=== PATIENT | male | born 1935 | race Caucasian/White ===

== ENCOUNTER 2017-04-29 00:51 | Inpatient (IN) | payer MEDICARE ==
[~2017-04-29] VITALS: Ht 175.3 cm; Wt 99.2 kg
--- NOTE | ~2017-04-29 | CO ---
Unit #: [id number] #: [id number] Patient: ROMAN CLEANING [id number] [id number] [facility]. [place], [place] [address] [id number] I MR#: [id number] NAME: ROMAN CLEANING. ROOM: 559 Age: 81 Sex: M Admission Date: 04/29/2017 : 1935 Attending Physician: Roberto Art M.D. CONSULTATION REPORT REASON FOR CONSULTATION Elevated creatinine level. HISTORY OF PRESENT ILLNESS The patient is a 81-year-old male with known history of hypertension; coronary artery disease, status post coronary stent placement in the past. The patient was moving furniture at his home when he suddenly had a syncopal episode and was brought into the emergency room. He was intubated en route and was slowly weaned off and extubated in the emergency room. His creatinine level noted to be 1.4. The patient noted to have an elevated creatinine level. Home medications include Zestril and meloxicam. There is no reported vomiting, diarrhea, fevers, chills, hypotension, hematuria, dysuria. PAST MEDICAL HISTORY Significant for atrial fibrillation; peptic ulcer disease; type 2 diabetes; depression; hypertension; COPD; coronary artery disease, status post coronary artery stent placement; cystoscopy; bilateral inguinal hernia repair; wrist surgery. MEDICATIONS At home include hydrochlorothiazide, Klor-Con, sotalol, pravastatin, Lexapro, Coreg, Zyrtec, aspirin, Pradaxa, Desyrel. ALLERGIES IV dye and peanut. SOCIAL HISTORY Does not drink or smoke. FAMILY HISTORY Unremarkable. REVIEW OF SYSTEMS CVS: As above. RESPIRATORY: No cough or expectoration. GI: No diarrhea. No vomiting. : No hematuria. No dysuria. PHYSICAL EXAMINATION GENERAL: The patient is awake, alert, and oriented. VITAL SIGNS: Temperature is 98.6, heart rate is 70 per minute, blood pressure is 126/73. HEENT: Head is atraumatic. Extraocular movements are intact. Sclerae Unit #: [id number] #: [id number] Patient: ROMAN CLEANING are anicteric. Nose, no discharge. Ears, no discharge. NECK: Supple. There is no elevation of JVD. CHEST: Clear. Air entry is equal bilaterally. Breathing is vesicular in nature. HEART: S1, S2 audible. There is no S3, no S4. ABDOMEN: Soft. There is no organomegaly. No guarding. No rigidity. No rebound tenderness. There is no edema. SAUSAGE SMOKER: Motor system is intact. Cerebellar system is intact. DIAGNOSTIC STUDIES LABORATORY RESULTS: ABG on 04/29/2017; pH 7.32, pCO2 50.8, pO2 249, oxygen saturation 99.1. WBC 12, H and H 12.8 and 39.1 with a platelet count of 253. Lactic acid is 2.2. Sodium 140, potassium 4.9, chloride 102, CO2 30, glucose 244, BUN 22, creatinine 1.4, calcium 8.7. IMPRESSION 1. 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 Check proteinuria. Check renal ultrasound. Check urinalysis for urinary sediment and any evidence of acute glomerulonephritis. We will consider workup for paraproteinemia. We will request to refrain from NSAIDs. It could be tried on LOUIE inhibitors/ARB as outpatient. Expect renal function to stabilize. 2. Coronary artery disease. 3. Hypertension. 4. Chronic obstructive pulmonary disease. 5. Syncopal episode, etiology unclear. Dictated by... Duke Garcia M.D. RA/tamiko TD: 05/04/2017 19:42 JOB #: [id number] CONSULTATION REPORT Page 1 of 1 X Duke Garcia MD X CONSULTATION REPORT
--- NOTE | ~2017-04-29 | DS ---
Unit #: [id number] #: [id number] Patient: ROMAN CLEANING [id number] [address] [address] [id number] I MR#: [id number] NAME: ROMAN CLEANING. ROOM: 55 Age: 81 Sex: M Admission Date: 04/29/2017 : 1935 Discharge Date: 05/03/2017 Attending Physician: Roberto Art M.D. DISCHARGE SUMMARY DISCHARGE DIAGNOSES 1. Status post acute respiratory failure. 2. Status post acute exacerbation of COPD. 3. History of coronary artery disease. 4. Paroxysmal atrial fibrillation. 5. Questionable syncope, status post Cardiology evaluation. 6. Diabetes. 7. Depression. 8. Restless leg syndrome. DISCHARGE MEDICATIONS 1. Requip 2 mg p.o. at bedtime. 2. Vitamin B12 at 500 mcg daily. 3. Klor-Con 20 mEq daily. 4. Nexium 40 mg daily. 5. Aspirin 81 mg daily. 6. Pravastatin 80 mg daily. 7. Hydrochlorothiazide 25 mg daily. 8. Betapace 80 mg daily. 9. Colace 100 mg p.o. b.i.d. 10. Coreg 25 mg at bedtime and 12.5 mg in the morning. 11. Zyrtec 10 mg daily. 12. Desyrel 50 mg at bedtime. 13. Lexapro 20 mg daily. 14. Pradaxa 150 mg daily. 15. Flovent Diskus daily. 16. Tylenol p.r.n. 17. Prednisone tapering dose for 3 days. 18. Symbicort 2 puffs inhaler b.i.d. 19. Albuterol inhaler b.i.d. CONSULTS DURING THIS HOSPITAL STAY 1. Dr. Boy Sin, Pulmonary. 2. Dr. Church, Cardiology. 3. Dr. Dias, Nephrology. LABS, DIAGNOSTICS, AND PROCEDURES DURING THIS HOSPITAL STAY 1. Chest x-ray unremarkable. Bilateral emphysema. 2. Renal ultrasound normal bilateral renal sonograms. HISTORY OF PRESENT ILLNESS Please refer to H and P done by me for initial presentation on this gentleman. Unit #: [id number] #: [id number] Patient: ROMAN CLEANING ACTIVE PROBLEMS DIAGNOSED Acute respiratory failure. Initially he was intubated and extubated in the ER. Was kept on BiPAP briefly, but he was weaned off. He was seen in consultation by Pulmonary who treated with bronchodilators and IV steroids and is currently on p.o. steroids. Stable from Pulmonary standpoint to be discharged. Questionable syncope, most likely was presyncope most likely attributed to some type of chemical inhalation while cleaning the basement. Status post Cardiology evaluation and unremarkable workup. Stable from cardiac standpoint to be discharged. History of coronary artery disease with paroxysmal atrial fibrillation. Continue sotalol, beta dain, and Pradaxa. Diabetes. Continue home meds. Depression. Continue home medications. Restless leg syndrome. Started on Requip. CKD, status post evaluation per Renal. Outpatient followup with Nephrology. DISPOSITION Status post evaluation per PT/OT, stable to be discharged home. FOLLOWUP 1. With primary care physician in two to three days. 2. Outpatient followup with Cardiology and Nephrology. 1. Dictated by... Leyda Samayoa/salena TD: 05/03/2017 18:41 JOB #: [id number] DISCHARGE SUMMARY Page 1 of 1 X Roberto Art MD DISCHARGE SUMMARY
--- NOTE | ~2017-04-29 | HP ---
Unit #: [id number] #: [id number] Patient: ROMAN BAXTER [id number] [address] [address] [id number] I MR#: [id number] NAME: ROMAN BAXTER ROOM: 559 Age: 81 Sex: M Admission Date: 04/29/2017 : 1935 Attending Physician: Roberto Art M.D. Primary Care Physician: No Primary Care Physician HISTORY AND PHYSICAL ADMISSION DIAGNOSES 1. Acute hypoxemic respiratory failure. 2. Acute exacerbation of COPD. 3. History of paroxysmal A-fib. 4. History of mild valvular heart disease. 5. History of coronary disease. 6. History of depression. 7. Diabetes. 8. Peptic ulcer disease. HISTORY OF PRESENT ILLNESS Mr. Baxter is a 81-year-old gentleman well known to me secondary to previous similar admission. Apparently, he started having shortness of air and dyspnea after cleaning out the basement with his sons last night. Shortly after, EMS was called and he was found in acute hypoxemic respiratory failure, was intubated, taken to the [facility] ER. From there, patient was transferred to [place]. At [place], patient was treated with bronchodilators and was able to extubate. Briefly was put on BiPAP. Since then, he made further progress and had weaned off of the BiPAP as well. Currently, he appears pretty comfortable, status post evaluation per pulmonary and stable for transfer to telemetry. He denies any chest pain, denies any headache, dizziness, fever, chills, nausea, vomiting, diarrhea or abdominal pain. REVIEW OF SYSTEMS Twelve point review of systems on this patient was basically negative except as above. PAST MEDICAL HISTORY Significant for: 1. History of coronary artery disease. 2. A-fib. 3. Peptic ulcer disease. 4. Diabetes. 5. Depression. 6. Hypertension. 7. COPD. PAST SURGICAL HISTORY Significant for: 1. Cardiac cath with PCI with stents. 2. Cystoscopy. 3. Bilateral inguinal hernia repair. 4. Wrist surgery. Unit #: [id number] #: [id number] Patient: ROMAN BAXTER MEDICATIONS Home medications on this gentleman include: 1. HCTZ. 2. Klor-Con. 3. Sotalol. 4. Pravastatin. 5. Lexapro. 6. Nexium. 7. Coreg. 8. Zyrtec. 9. Aspirin. 10. B12. 11. Pradaxa. 12. Symbicort. 13. Fluticasone. 14. Albuterol. 15. Desyrel. ALLERGIES He is allergic to IV dye and peanuts. SOCIAL HISTORY No current history of tobacco, alcohol or illicit drugs. FAMILY HISTORY Unremarkable. PHYSICAL EXAMINATION The patient is a 80-year-old gentleman in no acute distress. VITAL SIGNS: Currently, BP 126/73, heart rate 70, respirations 23, temperature 98.6. HEENT: Head is atraumatic. Pupils equal, round, reactive to light and accommodation. Extraocular muscles intact. Oropharynx clear. NECK: Supple. No masses, no JVD, no bruits. CHEST: Diminished bilaterally. CARDIOVASCULAR: S1, S2. No murmurs. ABDOMEN: Soft, nontender, nondistended. EXTREMITIES: Lower extremities without any cyanosis, clubbing or edema. NEUROLOGIC: Patient is grossly intact. No focal deficits. LABS AND DIAGNOSTICS ABG early this morning show pH of 7.28, pCO2 65, pO2 311. Chemistry still pending. Hematology still pending. ASSESSMENT AND PLAN 1. Acute hypoxemic respiratory failure. 2. Acute exacerbation of COPD. 3. History of A-fib with coronary artery disease. 4. History of depression. 5. Diabetes. Plan - empiric Levaquin, Duo-Nebs, IV steroids and Pulmicort. Pulmonary eval. GI and DVT prophylaxis with some PPI and continue Pradaxa. Monitor closely on a telemetry bed. Healthy heart diabetic diet. Unit #: [id number] #: [id number] Patient: ROMAN BAXTER Dictated by Roberto Art M.D. OC/df TD: 04/30/2017 06:08 JOB #: [id number] HISTORY AND PHYSICAL Page 1 of 1 X Roberto Art MD HISTORY AND PHYSICAL
--- NOTE | ~2017-04-29 | CO ---
Unit #: [id number] #: [id number] Patient: ROMAN CLEANING [id number] [facility]. [place], [place] [address] [id number] I MR#: [id number] NAME: ROMAN CLEANING. ROOM: 559 Age: 81 Sex: M Admission Date: 04/29/2017 : 1935 Attending Physician: Roberto Art M.D. Primary Care Physician: Primary Care Physician No Consultation Date: 04/30/2017 CONSULTATION REPORT REASON FOR CONSULTATION Syncope. HISTORY OF PRESENT ILLNESS This is a 81-year-old white male, who was admitted with shortness of breath. The patient was cleaning his basement that contain dust and mold in preparation to move. He got very short of breath and his son assisted him upstairs. He took a breathing treatment and his dyspnea improved. 2 hours later, his dyspnea worsened. EMS was dispatched by the patient. When the patient saw EMS arrived, he opened the door, and then passed out. He was subsequently intubated. He was brought to the Emergency Room at [facility] and was transferred to this facility. He was extubated. Prior to his syncopal episode, he denied any symptoms of angina. He had report of palpitations, but no dizziness. He states his breathing has gradually worsened over the past 2 weeks prior to his admission. He had no paroxysmal nocturnal dyspnea, orthopnea, or leg edema. The patient has a longstanding history of coronary artery disease, where he underwent multiple PCI and stents in the past. His cardiac catheterization in 2012, showed chronically occluded right coronary artery. He was admitted at [facility] in 01/2017 for chest pain. He underwent cardiac catheterization and was found to have nonobstructive disease except for the right coronary artery which was chronic occluded. It was successful stent placement of the proximal right coronary artery chronic total occlusion. He is known to have paroxysmal atrial fibrillation and has been on triple therapy with aspirin, Plavix, and Pradaxa. He has since failed to follow with Cardiology. His troponin has been negative. EKG shows no acute ischemic changes. PAST MEDICAL HISTORY 1. PCI with drug-eluting stents x2 to the mid and proximal LAD in 04/2012. 2. Cardiac catheterization on 01/02/[address] Alejandre at [facility] that reveals the following results. a. Left main with 30% distal stenosis. Proximal LAD stent is widely patent. The mid to distal LAD has 20% diffuse stenosis. There was a large apical collateral to the right coronary artery. Ramus intermedius branch with 30% stenosis. Circumflex artery had 20% stenosis. Right coronary artery is totally occluded proximally. b. Status post successful drug-eluting stent of the proximal right coronary artery chronic total occlusion on 01/02/2017. 3. Paroxysmal atrial fibrillation with history of direct current cardioversion, on Pradaxa. 4. Hypertension. Unit #: [id number] #: [id number] Patient: ROMAN CLEANING 5. Hyperlipidemia. 6. Diabetes mellitus, type 2. 7. COPD. 8. Peptic ulcer disease. 9. Former smoker. PAST SURGICAL HISTORY 1. Cholecystectomy. 2. Cystoscopy. 3. Bilateral hernia repair. 4. Wrist surgery. SOCIAL HISTORY The patient is single and lives at home alone. He quit smoking more than 40 years ago. He denies illicit drug or alcohol use. FAMILY HISTORY Has a sister, who from myocardial infarction. ALLERGIES IV contrast. HOME MEDICATIONS Hydrochlorothiazide 25 mg daily, potassium chloride 20 mEq daily, sotalol 80 mg daily, pravastatin 80 mg daily, Lexapro 20 mg daily, carvedilol 12.5 mg q.a.m. and 25 mg q.p.m., Nexium 40 mg daily, Zyrtec 10 mg daily, aspirin 81 mg daily, vitamin B12 500 mcg daily, Pradaxa 150 mg daily, Symbicort 160/4.5 mcg 2 puffs b.i.d., Flovent 2 puffs b.i.d., albuterol sulfate per mini nebs b.i.d., trazodone 50 mg q.h.s. REVIEW OF SYSTEMS CONSTITUTIONAL: Negative for fever or chills. Has no weight gain or weight loss. HEENT: No headache, hearing or vision change, or difficulty with swallowing. Negative for dizziness. CARDIOVASCULAR: Has no symptoms of angina. Reports palpitations. No paroxysmal nocturnal dyspnea or orthopnea. No syncope or near syncope. RESPIRATORY: Positive for dyspnea at rest, worse on exertion. Has occasional nonproductive cough. No hemoptysis. GASTROINTESTINAL: No abdominal pain, nausea, or vomiting. No constipation or melena. EXTREMITIES: Negative for lower extremity edema. PHYSICAL EXAMINATION VITAL SIGNS: Blood pressure 139/67, heart rate 59, temperature 97.9. GENERAL: This is a very pleasant 81-year-old well-developed white male, who is in no acute distress. NEUROLOGIC: He is awake, alert, and oriented. There are no focal weaknesses. NECK: Trachea is midline. No thyromegaly. No lymphadenopathy. No jugular venous distention. HEART: S1, S2. Heart sounds are normal. No murmurs. No rubs or clicks. Regular rate and rhythm. LUNGS: The patient has a few rales and rhonchi in both lungs. ABDOMEN: Soft and nontender with bowel sounds are present. EXTREMITIES: Without leg edema. SKIN: Warm and dry. Unit #: [id number] #: [id number] Patient: ROMAN CLEANING DIAGNOSTIC STUDIES LABORATORY RESULTS: Hemoglobin 12.5, hematocrit 37.8, platelet count 201, white count 11.3. Sodium 143, potassium 3.7, BUN 26, creatinine 1.3, glucose 163. BNP 346. Troponin less than 0.05. IMAGING STUDIES: Chest x-ray shows no active disease. CARDIOVASCULAR STUDIES: EKG shows normal sinus rhythm, rate of 86 beats per minute. There were no acute ischemic changes. IMPRESSION 1. Chronic obstructive pulmonary disease exacerbation. 2. Syncope with loss of consciousness, questionable etiology. 3. Compensated chronic diastolic heart failure. 4. History of paroxysmal atrial fibrillation in normal sinus rhythm, on Pradaxa. 5. Coronary artery disease with history of percutaneous coronary intervention and stent to the left anterior descending in 2011 and percutaneous coronary intervention and stent x2 to right coronary artery chronic total occlusion in 01/2017. 6. Preserved left ventricular systolic function with an ejection fraction of greater than 55%. 7. Stable angina. PLAN 1. Cardiology was consulted for syncope. It is questionable if the patient truly had a syncopal episode. There was no mention of [facility] exam at [facility] Emergency Room. We will try to obtain records from [facility]. 2. The patient has compensated chronic diastolic heart failure. We will start the patient on daily Lasix orally. 3. The patient took Plavix for 3 months and is on triple therapy. We will discontinue Plavix and continue aspirin and Pradaxa. 4. Recent cardiac catheterization showed chronic total occlusion to the right coronary artery that was stented using 3.5 x 38 and 3.0 x 18 mm Xience Alpine stent in 01/2017. The old LAD stent was widely patent. We will continue the same cardiac management with no workup planned at this time. 5. We will follow the patient with you. Thank you for allowing us to assist with this patient's care. Dictated by... Ricardo Stearns A.P.R.N. for Leyda Iniguez/tamiko TD: 05/01/2017 15:58 JOB #: [id number] Sovera/invision Please Delete Unit #: [id number] #: [id number] Patient: ROMAN CLEANING CONSULTATION REPORT Page 1 of 1 X Ricardo Stearns APRN X CONSULTATION REPORT
--- NOTE | ~2017-04-29 | CR72 ---
[facility] A Service of [facility] & [facility] RADIOLOGY TEXT RESULTS PATIENT: OSWALD CLEANING LOCATION: [place] [address] : 37 UNIT #: [id number] AGE: [address]: Roberto Art MD SEX: M ORDER DR: [id number] [facility] [address] [place], [place] [address] [id number] I MR#: [id number] Acc #: [id number] NAME: OSWALD CLEANING. : 1935 SEX: M STUDY DATE/TIME: 04/30/2017 5:27 UNIT: [facility] ROOM: [facility] STUDY DESCRIPTION: CR Chest Single View Portable Attending Physician: Roberto Art M.D. Ordering Physician: Oswald Drake M.D. Primary Care Physician: No Primary Care Physician MEDICAL IMAGING REPORT This report is preliminary unless electronic signature is present EXAM Single view chest HISTORY Respiratory failure for 2 days. FINDINGS The cardiac and mediastinal contours are normal. Calcified mediastinal and right hilar nodes. No focal infiltrates or effusions. Small calcified granuloma lateral right base. ETT is been removed since yesterday. IMPRESSION No evidence of active disease in the lungs. ETT is been removed since yesterday. Dictated by... Pradip Morales M.D. THIS IS AN ELECTRONICALLY VERIFIED REPORT Pradip Morales M.D. at 04/30/2017 10:31 PM BARBARA/parminder TD: 04/30/2017 12:46 JOB #: [id number] MEDICAL IMAGING REPORT Page 1 of 1 COPY
--- NOTE | ~2017-04-29 | CR72 ---
[facility]. [facility] A Service of [facility] & [facility] RADIOLOGY TEXT RESULTS PATIENT: ROMAN CLEANING LOCATION: [facility] 559- : 37 UNIT #: [id number] AGE: [address]: Roberto Art MD SEX: M ORDER DR: [id number] [address] [address] [id number] MR#: [id number] Acc #: [id number] NAME: ROMAN CLEANING : 1935 SEX: M STUDY DATE/TIME: 04/29/2017 0:57 UNIT: SED ROOM: STUDY DESCRIPTION: CR Chest Single View Portable Attending Physician: Lee Antunez M.D. Ordering Physician: Dillan Crawford M.D. Primary Care Physician: Primary Care Physician No MEDICAL IMAGING REPORT This report is preliminary unless electronic signature is present. EXAM Portable chest HISTORY Shortness of air today. Intubation. FINDINGS ETT tip is 8 cm above the eddie. Bilateral emphysema and mild scattered linear fibrotic scarring in both lungs. Tiny calcified granuloma lateral right lung base. No airspace infiltrates or effusions. IMPRESSION 1. ETT tip is 8 cm above the eddie. 2. Bilateral emphysema and scattered fibrotic scarring in both lungs. Dictated by... Pradip Morales M.D. THIS IS AN ELECTRONICALLY VERIFIED REPORT Pradip Morales M.D. at 04/30/2017 4:46 AM BARBARA/jd TD: 04/29/2017 23:22 JOB #: [id number] MEDICAL IMAGING REPORT Page 1 of 1
--- NOTE | ~2017-04-29 | US77 ---
[facility] A Service of [facility] & [facility] RADIOLOGY TEXT RESULTS PATIENT: ROMAN CLEANING LOCATION: [facility] 559- : 37 UNIT #: [id number] AGE: [address]: Roberto Art MD SEX: M ORDER DR: [id number] [facility] [address] [place], [place] [address] [id number] I MR#: [id number] Acc #: [id number] NAME: ROMAN CLEANING. : 1935 SEX: M STUDY DATE/TIME: 05/02/2017 18:37 UNIT: [facility] ROOM: [facility] STUDY DESCRIPTION: US Kidney Bilateral Complete Attending Physician: Roberto Art M.D. Ordering Physician: Aureliano Anaya M.D. Primary Care Physician: No Primary Care Physician MEDICAL IMAGING REPORT This report is preliminary unless electronic signature is present EXAM Renal sonogram. CLINICAL HISTORY Chronic kidney disease, creatinine 1.1. FINDINGS Real-time examination demonstrates the kidneys to be of normal size, shape, and echogenicity. Right kidney measures 11.2 and the left kidney measures 11.3 cm in length. No hydronephrosis. A septated cystic lesion seen lower pole right kidney measuring 2.7 cm compatible with a mildly complicated cyst. Bladder unremarkable. Color Doppler confirms the presence of flow bilaterally. Probable small cyst lower pole left kidney. IMPRESSION Several small bilateral renal cortical cysts, otherwise normal bilateral renal sonogram. Dictated by... Jhonatan Newman M.D. THIS IS AN ELECTRONICALLY VERIFIED REPORT Jhonatan Newman M.D. at 05/03/2017 2:05 PM BRENDEN/farooq TD: 05/02/2017 21:52 JOB #: [id number] MEDICAL IMAGING REPORT Page 1 of 1 COPY
--- NOTE | ~2017-04-29 | CO ---
Unit #: [id number] #: [id number] Patient: OSWALD BAXTER [id number] [facility] [address] [place], [place] [address] [id number] MR#: [id number] NAME: OSWALD BAXTER. ROOM: 559 Age: 81 Sex: M Admission Date: 04/29/2017 : 1935 Attending Physician: Roberto Art M.D. Consultation Date: 04/29/2017 CONSULTATION REPORT HISTORY OF PRESENT ILLNESS Oswald Baxter is a 81-year-old male, whom I have been asked to see regarding respiratory failure and decompensated COPD. Mr. Baxter is followed in our office for severe COPD. He was in his usual health until the evening prior to admission. He is in the process of cleaning in his basement in preparation of moving to a new residence. Around 6 to 7 p.m., he was noted to have increased dyspnea, complaint of shortness of breath and was given a home nebulizer treatment with albuterol. His wheezing and chest congestion improved, but around midnight his bronchospastic symptoms returned and EMS was summoned. He was intubated in the field. He has no recall or memory of the event. He was taken to the emergency department at [facility] and then transferred to [facility] for inpatient care and management. Once at [facility], he was extubated as his respiratory status became better with treatment. He was first placed on BiPAP, but complained of nausea and vomiting and is now resting comfortably off BiPAP with relatively normal blood gases. On nasal oxygen off BiPAP, pO2 is 108, pCO2 of 45.7, 7.43. His chest x-ray showed no pneumonic infiltrates or masses. The patient is a reformed smoker. At home, he uses Symbicort and albuterol per metered dose inhaler and nebulizer. PAST MEDICAL HISTORY Remarkable for hypertension, obesity, depression, gastroesophageal reflux, COPD, and atrial fib. MEDICATIONS Outpatient medications include hydrochlorothiazide, potassium, sotalol, pravastatin, Lexapro, Coreg, Nexium, Zyrtec, aspirin, B12, Pradaxa, Symbicort, Flonase, albuterol, trazodone. ALLERGIES No listed allergies. FAMILY HISTORY Reviewed and noncontributory. SOCIAL HISTORY No history of alcohol or drug abuse. REVIEW OF SYSTEMS CONSTITUTIONAL: He denied fever, chills, or recent change in weight. Unit #: [id number] #: [id number] Patient: OSWALD BAXTER ENT: Complained of increased nasal and sinus congestion. No epistaxis. NECK: No pain in cervical spine. No thyroid enlargement. PULMONARY: As above. Currently, he is resting comfortably and in no distress. CARDIAC: Denied chest pain, ankle edema, or orthopnea. GI: Denied nausea, vomiting, or diarrhea. In the last several hours while on BiPAP, he was nauseated and had one episode of vomiting. : Denied dysuria or hematuria. SKIN: No rash or nodules. LYMPH: No adenopathy in neck, cervical, or axillary areas. NEUROLOGIC: No loss of consciousness, seizures, or syncope. He was unresponsive when internally was intubated. He is now awake and alert. MUSCULOSKELETAL: Arthritic pain and stiffness in his lower back, hips, and knees. All made worse by standing for long periods. PHYSICAL EXAMINATION GENERAL: He appeared obese, elderly male. VITAL SIGNS: Over the last several hours, his temp has remained normal at 97 to 98, pulse ranging from 80 to 90, respirations ranging from 16 to 20, and his blood pressure has been 100 to 110 over 60 to 70. HEENT: Head is normocephalic without evidence of trauma. Eyes; pupils equal, round, reactive to light and accommodation, not tested sclerae anicteric. Conjunctivae normal. Ears, nose, throat, nostrils; open and patent. Tympanic membranes appeared normal. Oral cavity unremarkable. Mallampati class II to III. No thrush. NECK: Supple without adenopathy or jugular venous distention. LUNGS: With diminished breath sounds, but clear. No rales, rhonchi, nor wheezes. CARDIAC: PMI poorly localized. HEART: Sounds distant. No murmurs or gallops. ABDOMEN: Obese, soft, nontender. No hepatosplenomegaly or masses. Bowel sounds were diminished and present. GENITALIA: Normal male. RECTAL: Deferred. EXTREMITIES: Without clubbing, cyanosis, or edema. SKIN: Warm and dry with normal capillary refill. LYMPHS: No adenopathy in neck, cervical, or axillary areas. MUSCULOSKELETAL: Equal muscular development bilaterally. No joint swelling or erythema. Strength not tested. NEUROLOGIC: Cranial nerves II through XII intact. Sensory normal to pinprick and touch. Deep tendon reflexes are 1+ in both upper and lower extremities. No Babinski negative. DIAGNOSTIC STUDIES LABORATORY RESULTS: Last blood gases are as mentioned above. IMAGING STUDIES: His chest x-ray as above. Changes of COPD. No pneumonic infiltrates or masses. IMPRESSION 1. Chronic obstructive pulmonary disease with bronchospastic exacerbation which is cleared relatively quickly. It was probably precipitated by household dust and dirt involved in cleaning his basement. 2. Respiratory failure which seems to be resolving. 3. Hypertension. 4. History of atrial fibrillation. 5. Depression. Unit #: [id number] #: [id number] Patient: OSWALD BAXTER RECOMMENDATIONS Suggest IV corticosteroids, nebulized bronchodilators, supplemental oxygen to keep his saturations between 90% and 94%. Antibiotics. He appears stable enough to go to a transitional care bed and not ICU. We will follow him with you. Dictated by... Boy Sin M.D. BRAN/tamiko TD: 05/01/2017 03:39 JOB #: [id number] CONSULTATION REPORT Page 1 of 1 X Boy Sin MD X CONSULTATION REPORT
[2017-04-29 01:06] LABS: ARTERIAL BLOOD GAS PCO2 50.8 mmHg (35.0-45.0)
[2017-04-29 01:07] LABS: ARTERIAL BLD GAS O2 SATURATION 99.1 % (90.0-100.0); ARTERIAL BLOOD GAS HCO3 25.3 mmol/L; ARTERIAL BLOOD GAS MET HB <0.0 %sat (0.0-2.0)
[2017-04-29 01:08] LABS: ARTERIAL BLOOD GAS ART SITE LEFT RADIAL; ARTERIAL DRAW? YES
[2017-04-29 01:20] LABS: BASOPHIL# 0.1 X10e3 (0-0.3); BASOPHIL% 0.5 % (0-2.5); EOSINOPHIL# 0.3 X10e3 (0-0.7); EOSINOPHIL% 2.6 % (0.0-7.0); HEMATOCRIT 39.1 % (38.0-50.0); HEMOGLOBIN 12.8 gm/dL (13.0-16.0); LYMPHOCYTE# 5.3 X10e3 (1.0-3.5); LYMPHOCYTE% 44.4 % (17.0-45.0); MEAN CELL VOLUME 92.1 FL (83-96); MEAN CORPUSCULAR HEMOGLOBIN 30.2 PG (28-34); MEAN CORPUSCULAR HGB CONC 32.8 g/dL (30-36); MEAN PLATELET VOLUME 9.8 FL (6.5-11.5); MONOCYTE# 0.9 X10e3 (0-1.0); MONOCYTE% 7.3 % (3.0-12.0); NEUTROPHIL# 5.4 X10e3 (1.5-7.1); NEUTROPHIL% 45.2 % (40-75); PLATELET COUNT 253 X10e3 (140-420); RED BLOOD COUNT 4.24 X10e (3.90-5.60); RED CELL DISTRIBUTION WIDTH 13.8 % (11.0-15.5)
[2017-04-29] MEDS ORDERED: SOTALOL AF80 M1 PO (01:22)
[2017-04-29] MEDS ORDERED: KCL PO ×2 (01:22→12:58)
[2017-04-29] MEDS ORDERED: HYDROCHLOROTHIA25 MG PO ×2 (01:22→12:57)
[2017-04-29] MEDS ORDERED: PRAVASTATIN SOD80 MG (01:23)
[2017-04-29] MEDS ORDERED: ESCITALOPRAM OX20 MG (01:23)
[2017-04-29] MEDS ORDERED: CARVEDILOL25 MG (01:24)
[2017-04-29] MEDS ORDERED: NEXIUM PO (01:24)
[2017-04-29 01:25] LABS: POC - CKMB 1.1 ng/mL (0.0-7.9); POC - TROPONIN <0.05 ng/mL (<=0.05)
[2017-04-29 01:25] LABS: DIFF IND NO
[2017-04-29] MEDS ORDERED: ASPIRIN81 M2 (01:25)
[2017-04-29] MEDS ORDERED: SYMBICORT (01:25)
[2017-04-29] MEDS ORDERED: ALBUTEROL2.5 MG/3 M (01:25)
[2017-04-29] MEDS ORDERED: PRADAXA150 MG (01:25)
[2017-04-29] MEDS ORDERED: ZYRTEC10 M1 (01:25)
[2017-04-29] MEDS ORDERED: FLOVENT DISKUS50 MCG INH (01:26)
[2017-04-29] MEDS ORDERED: DESYREL50 MG PO ×2 (01:27→13:12)
[2017-04-29 01:28] LABS: INR 1.3; PROTHROMBIN TIME (PATIENT) 14.8 SECONDS (9.5-12.4)
[2017-04-29 01:35] LABS: PARTIAL THROMBOPLASTIN TIME 34.7 SECONDS (25.6-38.1)
[2017-04-29 01:38] LABS: BILIRUBIN, DIRECT 0.1 mg/dL (0.0-0.2); BILIRUBIN,INDIRECT 0.3 mg/dL (0.0-0.9); BILIRUBIN,TOTAL 0.4 mg/dL (0.2-2.0); BUN/CREATININE RATIO 15.71; CALCIUM SERUM 8.7 mg/dL (8.4-10.2); CREATININE SERUM 1.4 mg/dL (0.6-1.4); GLOM FILT RATE Estimated 47.5 mL/min (>60); POTASSIUM 4.9 mmol/L (3.5-5.1); PROTEIN TOTAL SERUM 7.8 g/dL (6.0-8.3)
[2017-04-29 10:42] LABS: BASOPHIL% 0.2 % (0-2.5); HEMATOCRIT 37.8 % (38.0-50.0); HEMOGLOBIN 12.5 gm/dL (13.0-16.0); LYMPHOCYTE# 1.1 X10e3 (1.0-3.5); LYMPHOCYTE% 9.4 % (17.0-45.0); MEAN CELL VOLUME 90.7 FL (83-96); MEAN PLATELET VOLUME 9.9 FL (6.5-11.5); MONOCYTE# 0.2 X10e3 (0-1.0); MONOCYTE% 1.4 % (3.0-12.0); PLATELET COUNT 201 X10e3 (140-420); RED BLOOD COUNT 4.17 X10e (3.90-5.60); WHITE BLOOD COUNT 11.3 X10e3 (4.0-10.5)
[2017-04-29 10:43] LABS: DIFF IND NO
[2017-04-29 11:12] LABS: CALCIUM SERUM 9.3 mg/dL (8.4-10.2); CREATININE SERUM 1.3 mg/dL (0.6-1.4); GLOM FILT RATE Estimated 51.9 mL/min (>60); POTASSIUM 3.7 mmol/L (3.5-5.1)
[2017-04-29 12:09] LABS: ARTERIAL BLD GAS O2 SATURATION 96.8 % (90.0-100.0); ARTERIAL BLOOD GAS CARBOXY HB 0.6 %sat (0.0-9.0); ARTERIAL BLOOD GAS HCO3 30.7 mmol/L; ARTERIAL BLOOD GAS MET HB 1.4 %sat (0.0-2.0); ARTERIAL BLOOD GAS PCO2 45.7 mmHg (35.0-45.0); ARTERIAL BLOOD GAS pH 7.435 (7.350-7.450)
[2017-04-29 12:10] LABS: ARTERIAL BLOOD GAS ALLEN TEST NORMAL; ARTERIAL BLOOD GAS ART SITE RIGHT RADIAL; ARTERIAL BLOOD GAS DELIVERY NASAL CANNULA; ARTERIAL DRAW? YES
[2017-04-29] MEDS ORDERED: SOTALOL AF80 MG PO (12:58)
[2017-04-29] MEDS ORDERED: LEXAPRO20 MG PO (12:59)
[2017-04-29] MEDS ORDERED: PRAVASTATIN SOD80 MG PO (12:59)
[2017-04-29] MEDS ORDERED: CARVEDILOL25 MG PO (13:00)
[2017-04-29] MEDS ORDERED: ZYRTEC10 M2 PO (13:01)
[2017-04-29] MEDS ORDERED: ASPIRIN81 MG PO (13:01)
[2017-04-29] MEDS ORDERED: NEXIUM40 M1 PO (13:01)
[2017-04-29] MEDS ORDERED: B-12500 MC1 PO (13:02)
[2017-04-29] MEDS ORDERED: SYMBICORT INH (13:02)
[2017-04-29] MEDS ORDERED: PRADAXA150 MG PO (13:02)
[2017-04-29] MEDS ORDERED: FLOVENT DISKUS50 MCG PO (13:03)
[2017-04-29] MEDS ORDERED: ALBUTEROL2.5 MG/3 M INH (13:12)
[2017-05-01 06:54] LABS: HEMATOCRIT 35.4 % (38.0-50.0); HEMOGLOBIN 11.7 gm/dL (13.0-16.0); MEAN CELL VOLUME 90.6 FL (83-96); MEAN CORPUSCULAR HEMOGLOBIN 29.9 PG (28-34); MEAN CORPUSCULAR HGB CONC 33.1 g/dL (30-36); MEAN PLATELET VOLUME 10.3 FL (6.5-11.5); RED BLOOD COUNT 3.91 X10e (3.90-5.60); RED CELL DISTRIBUTION WIDTH 14.1 % (11.0-15.5); WHITE BLOOD COUNT 16.3 X10e3 (4.0-10.5)
[2017-05-01 07:22] LABS: BUN/CREATININE RATIO 28.46; CALCIUM SERUM 9.2 mg/dL (8.4-10.2); CREATININE SERUM 1.3 mg/dL (0.6-1.4); GLOM FILT RATE Estimated 51.9 mL/min (>60); POTASSIUM 4.3 mmol/L (3.5-5.1)
[2017-05-02 07:13] LABS: MEAN CORPUSCULAR HEMOGLOBIN 29.2 PG (28-34); MEAN CORPUSCULAR HGB CONC 32.5 g/dL (30-36); MEAN PLATELET VOLUME 10.2 FL (6.5-11.5); RED BLOOD COUNT 4.11 X10e (3.90-5.60); WHITE BLOOD COUNT 13.5 X10e3 (4.0-10.5)
[2017-05-02 08:01] LABS: PROCALCITONIN 0.11 NG/ML
[2017-05-02 08:27] LABS: BUN/CREATININE RATIO 30.71; CREATININE SERUM 1.4 mg/dL (0.6-1.4); GLOM FILT RATE Estimated 47.5 mL/min (>60); POTASSIUM 3.8 mmol/L (3.5-5.1)
[2017-05-02 19:26] LABS: URINE APPEARANCE CLEAR; URINE BILIRUBIN NEG (NEG); URINE BLOOD NEG (NEG); URINE COLOR YELLOW; URINE GLUCOSE NEG (NEG); URINE KETONE NEG (NEG); URINE LEUKOCYTE ESTERASE NEG (NEG); URINE NITRATE NEG (NEG); URINE PH 5.5 (5-8); URINE PROTEIN NEG (NEG); URINE SPECIFIC GRAVITY 1.012 (1.003-1.035); URINE UROBILINOGEN 0.2 MG/DL (NEG)
[2017-05-02 19:27] LABS: CREATININE,RANDOM URINE 49 mg/dL; TOTAL PROTEIN,RANDOM URINE <10 mg/dl (<10)
[2017-05-03 05:25] LABS: HEMATOCRIT 38.3 % (38.0-50.0); HEMOGLOBIN 12.8 gm/dL (13.0-16.0); MEAN CORPUSCULAR HEMOGLOBIN 30.1 PG (28-34); MEAN CORPUSCULAR HGB CONC 33.5 g/dL (30-36); MEAN PLATELET VOLUME 9.5 FL (6.5-11.5); RED BLOOD COUNT 4.26 X10e (3.90-5.60); WHITE BLOOD COUNT 12.5 X10e3 (4.0-10.5)
[2017-05-03 05:54] LABS: BUN/CREATININE RATIO 36.15; CALCIUM SERUM 9.1 mg/dL (8.4-10.2); CREATININE SERUM 1.3 mg/dL (0.6-1.4); GLOM FILT RATE Estimated 51.9 mL/min (>60); POTASSIUM 4.1 mmol/L (3.5-5.1)
[2017-05-03] MEDS ORDERED: COREG12.5 M1 PO (18:08)
[2017-05-03] MEDS ORDERED: PREDNISONE10 M1 PO (18:17)
[2017-05-03] MEDS ORDERED: ACETAMINOPHEN325 MG PO (18:18)
[2017-05-03] MEDS ORDERED: REQUIP2 MG PO (18:20)
[2017-05-03] MEDS ORDERED: CARVEDILOL25 MG PO (18:22)
[2017-05-03] MEDS ORDERED: DOCUSATE SODIU100 MG PO (18:23)
[2017-05-04 20:41] LABS: SPE A1GLOB (PNL) 0.3 g/dL (0.2-0.3); SPE A2GLOB (PNL) 0.8 g/dL (0.5-0.9); SPE ALB (PNL) 3.5 g/dL (3.8-4.8); SPE BETA 1 GLOBULIN 0.5 g/dL (0.4-0.6); SPE BETA 2 GLOBULIN 0.4 g/dL (0.2-0.5); SPE GAMMA (PNL) 1.2 g/dL (0.8-1.7); SPETP (PNL) 6.6 g/dL (6.1-8.1)
[2017-05-06 03:27] LABS: UPE RAND ALPHA1 GLOB 0 % (()); UPE RAND PROT/CREAT 80 (22-128); UPE RANDOM ALB (PNL) 100 % (()); UPE RANDOM ALPHA 2 GLOB 0 % (()); UPE RANDOM BETA GLOB 0 % (()); UPE RANDOM CREATININE 50.2 mg/dL (20-370); UPE RANDOM GAMMA GLOB 0 % (()); UPE RANDOM TOTAL PROTEIN (PNL) 4 mg/dL (5-25)
== END 2017-05-03 18:40 | disposition home or self-care (01) | DRG 208 ==
LOC: SED 00:51 → CED 01:27 → SED 01:27 → CEDOF 06:10 → C5B 06:10 → SED 06:32 → CEDOF 06:32 → C5B 18:33
PROVIDERS: Emergency Medicine; Hospitalist; Internal Medicine Nephrology
PROC: 5A1935Z Respiratory Ventilation, Less than 24 Consecutive Hours (ICD-10-PCS; principal; 2017-04-29)
DX: J96.01 Acute respiratory failure with hypoxia (principal); E11.22 Type 2 diabetes mellitus with diabetic chronic kidney disease; J44.1 Chronic obstructive pulmonary disease with (acute) exacerbation; I13.0 Hypertensive heart and chronic kidney disease with heart failure and stage 1 through stage 4 chronic kidney disease, or unspecified chronic kidney disease; I50.32 Chronic diastolic (congestive) heart failure; N18.9 Chronic kidney disease, unspecified; I48.0 Paroxysmal atrial fibrillation; F32.9 Major depressive disorder, single episode, unspecified; R55 Syncope and collapse; I25.10 Atherosclerotic heart disease of native coronary artery without angina pectoris; I25.119 Atherosclerotic heart disease of native coronary artery with unspecified angina pectoris; G25.81 Restless legs syndrome; K21.9 Gastro-esophageal reflux disease without esophagitis; Z90.49 Acquired absence of other specified parts of digestive tract; Z87.891 Personal history of nicotine dependence; Z87.11 Personal history of peptic ulcer disease; Z95.5 Presence of coronary angioplasty implant and graft; Z79.02 Long term (current) use of antithrombotics/antiplatelets; Z79.82 Long term (current) use of aspirin; Z91.041 Radiographic dye allergy status
CPT/HCPCS: 36415; 36600; 71010; 76770; 80048; 80076; 81003; 82308; 82553; 82570; 82803; 82947; 83605; 83874; 83880; 83883; 84156; 84165; 84166; 84484; 85025; 85027; 85610; 85730; 86334; 87040; 93005; 94640; 94660; 94760; 96365; 96375; 97161; 97165; 99285; C9113; G8978-GP; G8979-GP; G8980-GP; G8987-GO; G8988-GO; G8989-GO; J1956; J2405; J2920; J2930; J3475